=== PATIENT | female | born 1955 | race Caucasian/White ===

== ENCOUNTER → 2018-06-08 | Outpatient (CLI) | payer BC, OTHER ==
[~2018-06-08] MED LIST: CALCIUM 600 +1 EAC1; CENTRUM SILVER1 EAC2; CIPRO500 MG PO; FEMHRT 0.5 MG-1 EACH; FLEXERIL PO; GLUCOSAMINE HC500 MG; HYDROCODON-ACE1 EAC7 PO; ONDANSETRON HCL4 M2 PO; PHENAZOPYRIDIN200 M2 PO
== END ==
LOC: M.MRI 13:02
DX: S92.325A Nondisplaced fracture of second metatarsal bone, left foot, initial encounter for closed fracture (principal); S92.345A Nondisplaced fracture of fourth metatarsal bone, left foot, initial encounter for closed fracture; X58.XXXA Exposure to other specified factors, initial encounter; Y93.89 Activity, other specified; Y92.89 Other specified places as the place of occurrence of the external cause; Y99.8 Other external cause status